=== PATIENT | female | born 1955 | race Two or more races ===

== ENCOUNTER 2024-05-12 08:50 | Day surgery (SDC) | payer MEDICAID, SELFPAY ==
--- NOTE | 2024-05-11 07:00 | EKG_ITS ---
[facility] Test Date: 2024-05-11 Pat Name: SERGIO ROBERTS Department: Room: - Gender: Female Truck Operator: KEVIN : 1955 Requested By: Jean-Paul Willoughby Order Number: [id number] Reading MD: Jean-Paul Willoughby Measurements Intervals [place] Rate: 73 P: 34 [place]: 210 QRS: 37 QRSD: 94 T: 39 QT: 385 QTc: 427 Interpretive Statements SINUS RHYTHM WITH FIRST DEGREE AV BLOCK ANTEROSEPTAL MYOCARDIAL INFARCTION , OF INDETERMINATE AGE No previous ECG available for comparison /[id number]/[id number]
[2024-05-11 07:11] VITALS: BMI 37.0
[2024-05-11 08:44] LABS: Basophils % (Auto) 0 % (0-2.5); Eosinophils # (Auto) 0.1 Thou/mm3 (0.0-0.5); Eosinophils % (Auto) 1 % (0-10); Hematocrit 37.8 % (36.0-46.0); Hemoglobin 12.1 g/dL (12.0-16.0); Immature Granulocytes % (Auto) 0 % (0-0); Immature Granulocytes Auto 0.03 Thou/mm3 (0.00-0.00); Lymphocytes # (Auto) 3.2 Thou/mm3 (1.0-4.8); Lymphocytes % (Auto) 29 % (10-50); Mean Corpuscular Volume 84 fL (80-100); Monocytes # (Auto) 0.6 Thou/mm3 (0.0-0.8); Monocytes % (Auto) 6 % (0-12); Neutrophils # (Auto) 6.8 Thou/mm3 (1.8-7.7); Neutrophils % (Auto) 63 % (37-80); Nucleated Red Blood Cell % 0 /100 WBC (0); Platelet Count 440 Thou/mm3 (140-440); Red Blood Count 4.48 Miln/mm3 (4.00-5.20); White Blood Count 10.8 Thou/mm3 (3.6-11.0)
[2024-05-11 09:11] LABS: Alanine Aminotransferase 12 U/L (10-49); Albumin, Serum 5.1 gm/dL (3.4-4.8); Alkaline Phosphatase 113 U/L (46-116); Anion Gap 9 (7-16); Aspartate Amino Transferase < 10 U/L (0-34); BUN/Creatinine Ratio 15 Ratio (12-20); Bilirubin,Total 0.5 mg/dL (0.3-1.2); Blood Urea Nitrogen 17 mg/dL (9-23); Calcium 9.8 mg/dL (8.3-10.6); Calcium (Corrected) 9.8 mg/dL (8.5-10.1); Carbon Dioxide 30.2 mMol/L (20.0-31.0); Chloride 97 mMol/L (98-107); Creatinine (Component) 1.1 mg/dL (0.6-1.3); Estimated Creatinine Clearance 52.4 mL/min (>60); Globulin 2.6 gm/dL (2.3-3.5); Glucose 198 mg/dL (74-106); Osmolality,Calculated 279 (275-295); Potassium 3.9 mMol/L (3.4-5.1); Sodium 136 mMol/L (136-145); Total Protein 7.7 gm/dL (5.7-8.2); eGFR 55 See Note
--- NOTE | 2024-05-11 15:15 | SUR.PREOP ---
Pt notified to come in at 0930 tomorrow for surgery.
[2024-05-12] VITALS (10 sets, daily range): BP systolic 136–186; BP diastolic 76–96; PULSE 81–99; RESP 14–18; TEMP 36.2–36.9; O2SAT 95–100
[2024-05-12] MEDS: RINGERS LACTATED 1000 ML 1,000 ML 20 ML IV (09:46)
--- NOTE | 2024-05-12 14:52 | SUR.PHASEI ---
1445 To PACU able to lift head off of pillow, following simple commands continue to monitor pt vital signs and status.
--- NOTE | 2024-05-12 14:57 | ESOP_ITS ---
Date of Procedure 05/12/24 Pre Op Diagnosis Symptomatic cholelithiasis Post Op Diagnosis Cholelithiasis with cholecystitis Procedure Laparoscopic cholecystectomy Findings Moderately distended gallbladder with gallstones and chronic cholecystitis Procedure Description Patient was brought into the operating room in supine position. After adm inistration of general endotracheal anesthesia abdomen was prepped and draped in standard surgical manner. A Veress needle was inserted through the umbilicus and pneumoperitoneum was obtained up to 15 mmHg. The Veress needle was then removed, a 5 mm infraumbilical incision was made and the 5mm trocar was inserted. Laparoscopic camera was placed. Under direct visualization a laparoscopic camera a 10 mm trocar was placed in subxiphoid and two 5 mm trocars placed in right upper quadrant. The gallbladder was identified and was noted to be moderately distended with multiple small gallstones and chronic cholecystitis. It was retracted cephalad and laterally. Dissection started near the infundibulum of gallbladder where cystic duct and gallbladder junction clearly identified. The cystic duct was circumferentially dissected off the peritoneum and surrounding inflammatory tissue. The critical view of safety was clearly demonstrated. Cystic duct was then divided between 2 endoclips pro ximally and one distally. The cystic artery was similarly dissected and divided. The gallbladder was then from the liver bed using electrocautery. The gallbladder was then placed inside an Endo Catch and removed from the abdomen utilizing subxiphoid trocar site. The area was copiously and thoroughly washed and irrigated, all the fluid was suctioned and the suction fluid returned clear. Hemostasis achieved using electrocautery. Endoclips noted be in place and intact without any bleeding or any leakage. Hemostasis was adequate and satisfactory. The subxiphoid trocar sites fascial defect was closed with 0 Vicryl using Endo Closure device. Instruments and trocars removed, pneumoperitoneum was evacuated and the incisions closed with 4- 0 Monocryl in subcuticular fashion. Instrument needle and sponge counts were all reported to be correct X2. Patient tolerated the procedure well, was extubated, breathing spontaneously and without difficulty and was transferred to postanesthesia care in stable condition. Anesthesia GETA and local Pathology / specimen Other (Gallbladder and contents) Estimated Blood Loss 10 Condition Stable Disposition PACU Surgeon Jean-Paul Willoughby MD Surgical Staff Operation Date: 05/12/24 12:30 Case Staff CAR RENTAL MANAGER: Michelle Lundberg RN First Assistant: Chen Lewis
--- NOTE | 2024-05-12 15:15 | SUR.PHASEII ---
1515: Received report from Malia BARR, resuming care of pt.
--- NOTE | 2024-05-12 15:16 | SUR.PHASEI ---
1515 Resting comfortably no complaints, no s/s of distress noted, no change to abdomen dressings, report given to Oscar Mckeon RN
--- NOTE | 2024-05-12 16:10 | SUR.PHASEII ---
1610: Pt. AAOx4, vitals stable, breathing unlabored, no complaint of pain or nausea, dressing to ABD CDI, no active bleed noted, pt. tolerated bites of jello well, pt. ambulated to wheelchair with steady gait and no assist, no complications. Gave discharge instructions to the pt. and her ride using improvement advisor Dilcia, both verbalized understanding and had no further questions. Pt. left with all personal belongings.
== END 2024-05-12 16:10 | disposition home or self-care (01) ==
PROVIDERS: PCP Nurse Practitioner Family; Referring Provider Surgery; Visit Provider Surgery
PROC: 0FT44ZZ Resection of Gallbladder, Percutaneous Endoscopic Approach (ICD-10-PCS; CPT 47562; principal; 2024-05-12 12:15)
DX: K80.10 Calculus of gallbladder with chronic cholecystitis without obstruction (principal); Z01.810 Encounter for preprocedural cardiovascular examination
CPT/HCPCS: 47562; 36415; 80053; 85025; 93005; A4217; A4649; J0694; J1100; J2405; J2704; J3010; J3490; J7120; J1805